=== PATIENT | male | born 1940 | race Caucasian/White ===

== ENCOUNTER 2017-02-16 17:38 | Emergency (ER) | payer OTHER ==
[~2017-02-16] VITALS: Ht 170.2 cm; Wt 104.3 kg
[~2017-02-16 17:38] MED LIST: AMITRIPTYLINE H75 MG PO; AMLODIPINE BESY1 CA5 PO; COLCHICINE0.6 MG PO; ENDOCET 325 MG-1 TA1 PO; LOPRESSOR100 MG PO; METFORMIN HCL500 MG PO; METOPROLOL TART50 MG PO; PREDNISONE 20MG20 MG PO; PREDNISONE10 MG PO; SPIRIVA 18 MCG18 MCG INH; TERAZOSIN HCL5 MG PO
--- NOTE | 2017-02-16 19:16 | RADIOLOGY REPORT ---
EXAMINATION: RIGHT ELBOW RIGHT HAND CLINICAL INFORMATION: Fall. Pain COMPARISON: None. TECHNIQUE: 3 views right elbow. 3 views right hand FINDINGS: Right elbow: There is no definite fracture. No focal lesion. There is a tiny ossific density adjacent to the medial epicondyle. There is some spurring associated with the coronoid process and olecranon. There is at least a moderate amount of joint fluid within the anterior and posterior fat pad sign. Right hand: There is no definite acute displaced fracture. No subluxation. Marked soft tissue swelling over the metacarpal regions. IMPRESSION: Although no discrete fracture is demonstrated around the elbow the presence of joint fluid suggests the possibility of an occult fracture. Clinical correlation necessary. If it would alter patient management follow-up radiography in 7-10 days should be considered No definite fracture or subluxation of the hand. Extensive soft tissue swelling.
--- NOTE | 2017-02-16 19:36 | ED HAND/WRIST INJURY COMPLAINT ---
History of Present Illness General Chief Complaint: General Adult Stated Complaint: PT RIGHT WRIST IS SWOLLEN Source: patient, family, old records Exam Limitations: no limitations Vital Signs & Intake/Output Vital Signs & Intake/Output Vital Signs Date Time Temp Pulse Resp B/P Pulse O2 O2 Flow FiO2 Ox Delivery Rate 02/16 2337 90 18 168/101 95 02/16 2251 98.5 92 20 180/103 96 Room Air 02/167 98.7 116 20 193/118 93 Room Air 02/16 2011 99.6 129 20 174/102 93 Room Air 02/17 1748 99.0 120 16 188/118 95 Room Air ED Intake and Output 02/17 0000 02/16 1200 Intake Total 100 Output Total Balance 100 Intake, IV 100 Patient 230 lb Weight Allergies Coded Allergies: MDX - Color Additive (Color Additive) (RASH FROM "HAIR DYE" 03/02/15) Uncoded Allergies: METAL (Intermediate, 03/02/15) Reconcile Medications Amitriptyline Hydrochloride (Amitriptyline HCl) 75 MG TAB 75 MG PO ANTIDEPRESSANTS (Reported) AMLODIPINE BESYLATE/BENAZEPRIL (Amlodipine-Benazepril 10-40 MG) 10 MG-40 MG CAPSULE 1 TAB PO ANTIHYPERTENSIVES (Reported) 10mg amlodipine hold 40mg benazepril for Acute kidney injury Amoxicillin 875 MG TABLET 1 TAB PO BID cellulitis Colchicine 0.6 MG TAB 1 TAB PO DAILY GOUT Metformin Hydrochloride (Metformin HCl) 500 MG TAB 1 TAB PO DAILY DIABETES ( Reported) Acute kidney injury Metoprolol Tartrate 50 MG TABLET 1 TAB PO BID BETA ELLA (Reported) Metoprolol Tartrate (Lopressor) 100 MG TAB 1 TAB PO BID HEART (Reported) OXYCODONE HCL/ACETAMINOPHEN (Endocet 5-325 Tablet) 1 TAB TAB 1 TAB PO Q6H PRN PAIN Prednisone 20 MG TAB 2 TAB PO DAILY INFLAMMATION Prednisone 10 MG TABLET 1 TAB PO SI GOUT 05/29/14 TAKE 2 TABLET 05/30/14 TAKE 1 TABLET Sulfamethoxazole/Trimethoprim (Bactrim Ds Tablet) 800 MG-160 MG TABLET 1 TAB PO BID cellulitis Terazosin Hydrochloride (Terazosin HCl) 5 MG CAP 15 MG PO DAILY BPH (Reported ) Tiotropium [place] (Spiriva) 18 MCG CAP.W.DEV 1 CAP INH DAILY LUNG HEALTH ( Reported) Triage Note: PT STATES HIS RIGHT WRIST IS SWOLLEN UP TO HIS ELBOW. PT STATES HE THINKS THE STORM DOOR HIS HIS HAND TO HARD. PT REPORTS THIS HAPPEND ON MONDAY AND HE WAITED BY THE SWELLING HAS NOT GONE DOWN AND IS GETTING WORSE. Triage Nurses Notes Reviewed? yes Duration: day(s):, constant Timing: recent history Severity: severe Pain/Injury Location: Right: Wrist, Hand. No Modifying Factors: none HPI: 76-year-old male comes into emergency room for further evaluation of pain and swelling to his right hand/wrist. Patient reports that he had closed it storm door Monday 4 days ago. Patient reports that he's had significant swelling and pain since then. He's had some red streaking going up the arm. Denies any fever chills body aches. Denies any other associated symptoms. (TITA LA) Past History Travel History Traveled to [place] past 21 day No Medical History Any Pertinent Medical History? see below for history Cardiovascular: HTN, HIGH CHOL Respiratory: COPD, LOBECTOMY Cancer(s): LUNG CANCER History of MRSA: No History of VRE: No History of CDIFF: No Surgical History Surgical History: non-contributory Psychosocial History Who do you live with Spouse Services at Home None What is your primary language Ecuadorean Tobacco Use: Quit >30 days ago ETOH Use: occasional use Illicit Drug Use: denies illicit drug use Family History Family History, If Any: BROTHER (heart attack at age of 63). MOTHER (diabetes). Relation not specified for: FH: diabetes mellitus FH: heart attack Hx Contributory? No (TITA LA) Review of Systems Review of Systems Constitutional: Reports: no symptoms. EENTM: Reports: no symptoms. Respiratory: Reports: no symptoms. Cardiovascular: Reports: no symptoms. GI: Reports: no symptoms. Genitourinary: Reports: no symptoms. Musculoskeletal: Reports: see HPI. Skin: Reports: see HPI. Neurological/Psychological: Reports: no symptoms. Hematologic/Endocrine: Reports: no symptoms. Immunologic/Allergic: Reports: no symptoms. All Other Systems: Reviewed and Negative (TITA LA) Physical Exam Physical Exam General Appearance: well developed/nourished, mild distress Head: atraumatic Eyes: Bilateral: normal appearance. Ears, Nose, Throat: normal ENT inspection, hearing grossly normal Neck: normal inspection Cardiovascular/Respiratory: no respiratory distress, tachycardia Back: normal inspection Hand Left: normal inspection Hand Right: swelling, redness, warmth, radial pulse intact, limited range of motion, red streaking going up arm, Neurologic/Tendon: normal motor functions, normal tendon functions, no evidence tendon injury, no pulse deficit Skin: intact, normal color, warm/dry Lymphatic: no anterior cervical claudio (TITA LA) Progress Differential Diagnosis: abscess, cellulitis, contusion, compartment syndrome, septic arthritis, tenosynovitis Plan of Care: Orders Procedure Date/time Status Durable Medical Equipment 02/16 2311 Active BLOOD CULTURE 02/16 1941 Active LACTIC ACID 02/16 1941 Complete WESTERGREN SED RATE 02/16 1941 Complete C-REACTIVE PROTEIN 02/16 1941 Complete CBC WITHOUT DIFFERENTIAL 02/16 1941 Complete BASIC METABOLIC PANEL 02/16 1941 Complete Laboratory Tests 02/16/172240: Lactic Acid Cancelled 02/16/171957: Anion Gap 11, Estimated GFR > 60, BUN/Creatinine Ratio 16.0, Glucose 133 H, Lactic Acid 1.3, Calcium 9.9, C-Reactive Prot, Quant 4.8 H, CBC w Diff NO MAN DIFF REQ, RBC 4.66 L, MCV 92.8, MCH 30.9, RDW 12.9, MPV 8.0, Gran % 77.9 H, Lymphocytes % 11.8 L, Monocytes % 9.2, Eosinophils % 0.9, Basophils % 0.2, Absolute Granulocytes 8.8 H, Absolute Lymphocytes 1.3, Absolute Monocytes 1.0 H, Absolute Eosinophils 0.1, Absolute Basophils 0, PUBS MCHC 33.3, ESR Westergren 62 H Microbiology 02/16 2010 BLOOD: Blood Culture - RECD 02/16 1845 BLOOD: Blood Culture - RECD Diagnostic Imaging: Viewed by Me: Radiology Read. Discussed w/RAD: Radiology Read. Radiology Impression: SERVICE DATE: 02/16/17 EXAM TYPE: RAD - XRY-ELBOW 3 OR MORE VIEWS, R; XRY-HAND, RIGHT EXAMINATION: RIGHT ELBOW RIGHT HAND CLINICAL INFORMATION: Fall. Pain COMPARISON: None. TECHNIQUE: 3 views right elbow. 3 views right hand FINDINGS: Right elbow: There is no definite fracture. No focal lesion. There is a tiny ossific density adjacent to the medial epicondyle. There is some spurring associated with the coronoid process and olecranon. There is at least a moderate amount of joint fluid within the anterior and posterior fat pad sign. Right hand: There is no definite acute displaced fracture. No subluxation. Marked soft tissue swelling over the metacarpal regions. IMPRESSION: Although no discrete fracture is demonstrated around the elbow the presence of joint fluid suggests the possibility of an occult fracture. Clinical correlation necessary. If it would alter patient management follow-up radiography in 7-10 days should be considered No definite fracture or subluxation of the hand. Extensive soft tissue swelling. DICTATED BY: CHAYITO AGUIRRE MD DATE/TIME DICTATED:02/16/171907 ADVERTISING COPYWRITER:LUISA DATE/TIME TRANSCRIBED:02/16/171907 ([place],TITA) Departure Departure Disposition: HOME OR SELF CARE Condition: Stable Clinical Impression Primary Impression: Cellulitis of right hand Referrals: Denisse NAQVI MD (PCP/Family) Additional Instructions: Take Bactrim and amoxicillin as prescribed. Return in 3 days for a wound check. If you have any spreading of redness, fever, increased pain, he needs to return to the emergency room immediately for admission for IV antibiotics. Have your blood pressure rechecked. Make sure you're taking her blood pressure medication. Please go over all results of today's visit with your primary care doctor. Contact your primary care doctor to let them know you were here in the emergency room. There may be nonspecific findings which may not be related to your visit today here in the emergency room but may require further evaluation and chronic monitoring by your primary care doctor. If you had a laceration today the chance of foreign body always remains. You should follow-up with your primary care doctor for recheck in 3-5 days for a wound check. If you had an x-ray done there is a chance that a fracture could have been missed on initial read and you should follow-up with your primary care doctor for repeat x-rays if symptoms persist. If your blood pressure was elevated here in the emergency room please have rechecked by her primary care doctor within the next 48 hours by your primary care doctor. If you were prescribed a narcotic here in the emergency room or any type of controlled substances you're not allowed to drive while taking this medication or operate any type of heavy machinery. Narcotics can make you feel lightheaded dizziness nausea and can cause constipation. You may need to spanish moss picker a stool softener. Thank you for choosing [facility] emergency room. Please return to the emergency room immediately if you have any other concerns worsening of symptoms. Departure Forms: Customer Survey General Discharge Information Prescriptions: Current Visit Scripts Amoxicillin 1 TAB PO BID #20 TAB Sulfamethoxazole/Trimethoprim (Bactrim Ds Tablet) 1 TAB PO BID #20 TAB Comments 02/16/2017 11:16:20 PM Patient did not take his Lopressor this morning or tonight. Patient was given dose of Lopressor here. This explains why the patient's blood pressure was elevated and his heart rate was slightly high. Patient does not want to be admitted for hand cellulitis at this time. Patient be started on oral antibiotics with close follow-up to return here in the emergency room in 3 days to have a wound check. Patient understands and agrees with plan of care. Patient will return if any other concerns. Patient was told that if he has any worsening of symptoms he needs to return to the emergency room immediately. Patient understands and agrees with plan of care. (TITA LA) PA/INVENTORY CONTROL SPECIALIST Co-Sign Statement Statement: ED Attending supervision documentation- x I saw and evaluated the patient. I have also reviewed all the pertinent lab results and diagnostic results. I agree with the findings and the plan of care as documented in the PA's/INVENTORY CONTROL SPECIALIST's documentation. [] I have reviewed the ED Record and agree with the PA's/INVENTORY CONTROL SPECIALIST's documentation. [] Additions or exceptions (if any) to the PAs/INVENTORY CONTROL SPECIALIST's note and plan are summarized below: [] (SARAH BOWDEN,SANDY)
[2017-02-16 20:10] LABS: ABSOLUTE BASOPHIL COUNT 0 /CUMM (0.0-0.2); ABSOLUTE EOSINOPHIL COUNT 0.1 /CUMM (0.0-0.7); ABSOLUTE GRANULOCYTE CT 8.8 /CUMM (1.4-6.5); ABSOLUTE LYMPH COUNT 1.3 /CUMM (1.2-3.4); BASOPHIL % 0.2 % (0.0-2.0); EOSINOPHIL % 0.9 % (0-5); GRANULOCYTE % 77.9 % (42.2-75.2); HEMATOCRIT 43.2 % (42-52); MEAN CORPUSCULAR HGB 30.9 PG (27.0-31.0); MEAN CORPUSCULAR HGB CONC 33.3 G/DL (33.0-37.0); MEAN CORPUSCULAR VOLUME 92.8 FL (80.0-94.0); PLATELET COUNT 310 /CUMM (130-400); RBC DISTRIBUTION WIDTH 12.9 % (11.5-14.5); RED BLOOD CELL CT 4.66 /CUMM (4.70-6.10); WHITE BLOOD CELL COUNT 11.3 /CUMM (4.8-10.8)
[2017-02-16] MEDS ORDERED: AMOXICILLIN875 M1 PO (23:10)
[2017-02-16] MEDS ORDERED: BACTRIM DS TAB1 EACH PO (23:10)
[2017-02-16 23:37] VITALS: BP 168/101
== END 2017-02-16 23:39 ==
LOC: ERH 17:38
PROVIDERS: Physician Assistant Medical
DX: L03.113 Cellulitis of right upper limb (principal)
CPT/HCPCS: 73080-RT; 73130-RT; 87040; 96374; J7040

== ENCOUNTER 2017-02-19 11:56 | Emergency (ER) | payer OTHER ==
[~2017-02-19] VITALS: Ht 170.2 cm; Wt 104.3 kg
[~2017-02-19 11:56] MED LIST changes: +AMOXICILLIN875 M1 PO; +BACTRIM DS TAB1 EACH PO
[2017-02-19 12:22] VITALS: BP 172/90
--- NOTE | 2017-02-19 12:59 | ED ANIMAL BITE/WOUND CHECK ---
History of Present Illness General Chief Complaint: Suture Removal/Wound Recheck Stated Complaint: WOUND RECHECK Source: patient, old records Exam Limitations: no limitations Vital Signs & Intake/Output Vital Signs & Intake/Output Vital Signs Date Time Temp Pulse Resp B/P Pulse O2 O2 Flow FiO2 Ox Delivery Rate 02/19 1222 96.3 76 18 172/90 99 Room Air Allergies Coded Allergies: MDX - Color Additive (Color Additive) (RASH FROM "HAIR DYE" 03/02/15) Uncoded Allergies: METAL (Intermediate, 03/02/15) Reconcile Medications Amitriptyline Hydrochloride (Amitriptyline HCl) 75 MG TAB 75 MG PO ANTIDEPRESSANTS (Reported) AMLODIPINE BESYLATE/BENAZEPRIL (Amlodipine-Benazepril 10-40 MG) 10 MG-40 MG CAPSULE 1 TAB PO ANTIHYPERTENSIVES (Reported) 10mg amlodipine hold 40mg benazepril for Acute kidney injury Amoxicillin 875 MG TABLET 1 TAB PO BID cellulitis Colchicine 0.6 MG TAB 1 TAB PO DAILY GOUT Metformin Hydrochloride (Metformin HCl) 500 MG TAB 1 TAB PO DAILY DIABETES ( Reported) Acute kidney injury Metoprolol Tartrate 50 MG TABLET 1 TAB PO BID BETA ELLA (Reported) Metoprolol Tartrate (Lopressor) 100 MG TAB 1 TAB PO BID HEART (Reported) OXYCODONE HCL/ACETAMINOPHEN (Endocet 5-325 Tablet) 1 TAB TAB 1 TAB PO Q6H PRN PAIN Prednisone 20 MG TAB 2 TAB PO DAILY INFLAMMATION Prednisone 10 MG TABLET 1 TAB PO SI GOUT 05/29/14 TAKE 2 TABLET 05/30/14 TAKE 1 TABLET Sulfamethoxazole/Trimethoprim (Bactrim Ds Tablet) 800 MG-160 MG TABLET 1 TAB PO BID cellulitis Terazosin Hydrochloride (Terazosin HCl) 5 MG CAP 15 MG PO DAILY BPH (Reported ) Tiotropium [place] (Spiriva) 18 MCG CAP.W.DEV 1 CAP INH DAILY LUNG HEALTH ( Reported) Triage Note: PT TO ED FOR CELLULITIS TO HIS HAND RECHECK - REPORTING HE WAS SEEN HERE MONDAY FOR SAME. PT STATING HAND IS GREATLY IMPROVED, DENIES FEVER, WEAKNESS, FATIGUE, N/V. Triage Nurses Notes Reviewed? yes HPI: 76-year-old male who is here for recheck of cellulitis of the right hand. He was seen here 3 days ago for same, placed on amoxicillin and Bactrim, and through this is previous records. He states that his hand is feeling significant the improved, his redness has resolved, he has no fever no flulike illness. He is wearing a wrist brace and he still has swelling in his hand and fingers however it is significantly less, the pain is much improved. (JAQUELIN GUERRA) Past History Travel History Traveled to [place] past 21 day No Medical History Any Pertinent Medical History? see below for history Neurological: NONE EENT: NONE Cardiovascular: HTN, HIGH CHOL Respiratory: COPD, LOBECTOMY Gastrointestinal: NONE Hepatic: NONE Renal: NONE Musculoskeletal: NONE Psychiatric: NONE Endocrine: NONE Blood Disorders: NONE Cancer(s): LUNG CANCER History of MRSA: No History of VRE: No History of CDIFF: No Surgical History Surgical History: non-contributory Psychosocial History Who do you live with Spouse Services at Home None What is your primary language Romansh Tobacco Use: Never used ETOH Use: denies use Illicit Drug Use: denies illicit drug use Family History Family History, If Any: BROTHER (heart attack at age of 63). MOTHER (diabetes). Relation not specified for: FH: diabetes mellitus FH: heart attack Hx Contributory? No (JAQUELIN GUERRA) Review of Systems Review of Systems Constitutional: Reports: see HPI. EENTM: Reports: no symptoms. Respiratory: Reports: no symptoms. Cardiovascular: Reports: no symptoms. GI: Reports: no symptoms. Genitourinary: Reports: no symptoms. Musculoskeletal: Reports: see HPI. Skin: Reports: see HPI. Neurological/Psychological: Reports: no symptoms. Hematologic/Endocrine: Reports: no symptoms. Immunologic/Allergic: Reports: no symptoms. All Other Systems: Reviewed and Negative (JAQEULIN GUERRA) Physical Exam Physical Exam General Appearance: well developed/nourished Comments: Well-developed well-nourished no apparent distress. HEENT: Atraumatic, extraocular motion intact Neck: Supple, no lymphadenopathy Back: Nontender Respiratory: No respiratory distress Extremities: No edema, full range of motion Neuro: Alert and oriented x3 Psych: Mood affect normal, normal memory normal judgment. Skin: Warm and dry, no rash on exposed skin Right upper extremity, there is mild to moderate swelling of the hand and fingers. The patient removes his wrist brace, the swelling is noted mostly only to the hand and fingers and the brace was on fairly tight. His range of motion is good, painless. He has no significant erythema or warmth or tenderness throughout the right upper extremity. At the thenar eminence a small superficial wooden splinter is noted. (JAQUELIN GUERRA) Progress Differential Diagnosis: abscess, cellulitis, joint infection, tenosysnovitis Plan of Care: His infection has near completely resolved with antibiotics. He does have a wooden splinter noted in the right palm thenar eminence. It is small and superficial. After verbal consent was obtained, area was cleansed with alcohol and 18-gauge needle was used to remove the splinter in its entirety without difficulty. Patient tolerated well without complications. He should continue his antibiotics and return with any concerns (JAQUELIN GUERRA) Departure Departure Disposition: HOME OR SELF CARE Condition: Stable Clinical Impression Primary Impression: Cellulitis of hand, right Secondary Impressions: Splinter of hand Qualifiers: Encounter type: initial encounter Laterality: right Qualified Code: S60.551A - Superficial foreign body of right hand, initial encounter Referrals: DONYA BOWDEN,Denisse YANEZ (PCP/Family) Additional Instructions: Continue taking the antibiotics. Avoid using the splint too much because it will limit your ability to reduce the swelling in your hand and fingers. Move your hand wrist and fingers frequently to reduce swelling. Watch for worsening signs of infection such as redness, swelling, pain, fever or flulike illness. Return with any concerns Departure Forms: Customer Survey General Discharge Information (JAQUELIN GUERRA) PA/YOUTH SERVICES SPECIALIST Co-Sign Statement Statement: ED Attending supervision documentation- [X] I saw and evaluated the patient. I have also reviewed all the pertinent lab results and diagnostic results. I agree with the findings and the plan of care as documented in the PA's/YOUTH SERVICES SPECIALIST's documentation. [X] I have reviewed the ED Record and agree with the PA's/YOUTH SERVICES SPECIALIST's documentation. [] Additions or exceptions (if any) to the PAs/YOUTH SERVICES SPECIALIST's note and plan are summarized below: [] (FIDELINA BOWDEN,JERE Bautista)
== END 2017-02-19 13:01 ==
LOC: ERH 11:56
DX: S60.551A Superficial foreign body of right hand, initial encounter (principal); L03.113 Cellulitis of right upper limb; W45.8XXA Other foreign body or object entering through skin, initial encounter; Y93.9 Activity, unspecified; Y92.9 Unspecified place or not applicable
CPT/HCPCS: 99282

== ENCOUNTER 2018-08-07 13:46 | Inpatient (IN) | payer OTHER ==
[~2018-08-07] VITALS: Ht 170.2 cm; Wt 103.9 kg
[~2018-08-07 13:46] MED LIST changes: +AMITRIPTYLINE H75 M2 PO; -AMITRIPTYLINE H75 MG PO; +METFORMIN HCL500 M3 PO; -METFORMIN HCL500 MG PO; +TERAZOSIN HCL10 M1 PO; -TERAZOSIN HCL5 MG PO
--- NOTE | 2018-08-07 14:27 | RADIOLOGY REPORT ---
EXAMINATION: XR PORTABLE CHEST CLINICAL INFORMATION: Weakness. COMPARISON: 01/11/2018 TECHNIQUE: Portable frontal view of the chest was obtained. FINDINGS: Severe pulmonary emphysema. Volume loss of right hemithorax with elevation right diaphragm from prior lower lobectomy. Linear opacity of focal scarring or discoid atelectasis in the inferior lingula. No acute cardiopulmonary findings compared to the prior radiograph. No pulmonary edema, pneumothorax or pleural effusion. Cardiac silhouette is normal in size. Atherosclerotic calcification of the thoracic aorta. Surgical absence of right sixth rib. IMPRESSION: - Pulmonary emphysema - No evidence of acute pneumonia. - The chest has a stable appearance compared to 01/11/2018.
[2018-08-07 14:37] LABS: ABSOLUTE BASOPHIL COUNT 0 /CUMM (0.0-0.2); ABSOLUTE EOSINOPHIL COUNT 0.1 /CUMM (0.0-0.7); ABSOLUTE GRANULOCYTE CT 9.7 /CUMM (1.4-6.5); ABSOLUTE LYMPH COUNT 1.1 /CUMM (1.2-3.4); ABSOLUTE MONOCYTE COUNT 0.9 /CUMM (0.10-0.60); BASOPHIL % 0.3 % (0.0-2.0); EOSINOPHIL % 0.5 % (0-5); GRANULOCYTE % 82.2 % (42.2-75.2); HEMATOCRIT 40.6 % (42-52); MEAN CORPUSCULAR HGB 31.8 PG (27.0-31.0); MEAN CORPUSCULAR HGB CONC 33.5 G/DL (33.0-37.0); MEAN CORPUSCULAR VOLUME 95.1 FL (80.0-94.0); MEAN PLATELET VOLUME 8.5 FL (7.4-10.4); PLATELET COUNT 337 /CUMM (130-400); RBC DISTRIBUTION WIDTH 12.3 % (11.5-14.5); RED BLOOD CELL CT 4.27 /CUMM (4.70-6.10); WHITE BLOOD CELL COUNT 11.8 /CUMM (4.8-10.8)
[2018-08-07] MEDS ORDERED: METOPROLOL TAR100 M1 PO (15:00)
[2018-08-07] MEDS ORDERED: LOTREL 10-40 M1 EACH PO (15:01)
--- NOTE | 2018-08-07 15:10 | ED AMS/SEIZURE/WEAK/DIZZY ---
See Addendum History of Present Illness General Chief Complaint: General Adult Stated Complaint: BIBA, GENERALIZED WEAKNESS Source: patient, family, old records Exam Limitations: no limitations Vital Signs & Intake/Output Vital Signs & Intake/Output Vital Signs Date Time Temp Pulse Resp B/P B/P Pulse O2 O2 Flow FiO2 Mean Ox Delivery Rate 08/07 1542 96 Nasal 2.0L Cannula 08/07 1351 97.8 78 20 101/45 94 Room Air Room Air Allergies Uncoded Allergies: HAIR DYE (RASH FROM HAIR DYE 08/07/18) METAL (Intermediate, 03/02/15) Reconcile Medications Amitriptyline HCl 75 MG TABLET 1 TAB PO QPM DEPRESSION (Reported) Amlodipine Besylate/Benazepril (Lotrel 10-40 MG Capsule) 10 MG-40 MG CAPSULE 1 CAP PO DAILY HEART (Reported) Metformin HCl 500 MG TABLET 1 TAB PO BID DIABETES (Reported) Metoprolol Tartrate 100 MG TABLET 1 TAB PO BID HEART (Reported) Terazosin HCl 10 MG CAPSULE 1 CAP PO DAILY BPH (Reported) Triage Note: PT BIBA FROM HOME FOR INCREASED WEAKNESS OVER THAT LAST FEW WEEKS. REPORTS JUST GENERALLY NOT FEELING WELL. DENIES SOB, CP. PT'S O2 SAT DROPPED TO 89% ON RA. PT APPEARS SLIGHTLY PALE ON ARRIVAL. Triage Nurses Notes Reviewed? yes Onset: Abrupt Duration: day(s): (2-3), constant, continues in ED Timing: single episode today Injury Environment: home Severity: mild, moderate No Modifying Factors: none Modifying Factors: Worsens With: movement. HPI: 78-year-old male past medical history of lung cancer status post lobectomy, diabetes, COPD on home O2, hypertension, hyperlipidemia presents for evaluation of generalized weakness. Patient reports over the past few days he has felt more weak than usual. He states that he has had a difficult time moving around due to the weakness. His reports he has not been eating or drinking much spent most of his time in bed. He usually is able to walk without much difficulty. Patient reports he also has had worsening gout flares recently. They initially started in both ankles and is now on the right wrist. He denies any trauma to this area. The pain is worse with movement. He denies any fever or spreading redness. Has not taken any medicine for this. He states that he is urinating usually. He has no nausea vomiting diarrhea chest pain hemoptysis lower extremity edema recent surgery or recent trauma. According to his he appears more lethargic than usual but is mentating normally. (Scott Ziegler) Past History Travel History Traveled to [place] past 21 day No Medical History Any Pertinent Medical History? see below for history Neurological: NONE EENT: NONE Cardiovascular: HTN, HIGH CHOL Respiratory: COPD, LOBECTOMY Gastrointestinal: NONE Hepatic: NONE Renal: NONE Musculoskeletal: gout Psychiatric: NONE Endocrine: diabetes Blood Disorders: NONE Cancer(s): LUNG CANCER History of MRSA: No History of VRE: No History of CDIFF: No Surgical History Surgical History: non-contributory Psychosocial History Who do you live with Spouse Services at Home None What is your primary language Swiss Tobacco Use: Quit >30 days ago Family History Family History, If Any: BROTHER (heart attack at age of 63). MOTHER (diabetes). Relation not specified for: FH: diabetes mellitus FH: heart attack Hx Contributory? No (Scott Ziegler) Review of Systems Review of Systems Constitutional: Reports: malaise, weakness. EENTM: Reports: no symptoms. Respiratory: Reports: no symptoms. Cardiovascular: Reports: no symptoms. GI: Reports: no symptoms. Genitourinary: Reports: no symptoms. Musculoskeletal: Reports: gout, joint pain, joint swelling. Skin: Reports: no symptoms. Neurological/Psychological: Reports: no symptoms. Hematologic/Endocrine: Reports: no symptoms. Immunologic/Allergic: Reports: no symptoms. All Other Systems: Reviewed and Negative (Scott Ziegler) Physical Exam Physical Exam General Appearance: well developed/nourished, no apparent distress, alert, awake Head: atraumatic, normal appearance Eyes: Bilateral: normal appearance, PERRL, EOMI. Ears, Nose, Throat: hearing grossly normal Neck: normal inspection, supple, full range of motion Respiratory: normal breath sounds, chest non-tender, no respiratory distress, lungs clear Cardiovascular: regular rate/rhythm, normal peripheral pulses Peripheral Pulses: 2+ radial (R), 2+ radial (L) Gastrointestinal: soft, non-tender Back: normal inspection, normal range of motion, no vertebral tenderness Extremities: normal range of motion Neurologic/Psych: no motor/sensory deficits, awake, alert, oriented x 3 Skin: intact, normal color, warm/dry Core Measures ACS in differential dx? No CVA/TIA Diagnosis No Sepsis Present: No Sepsis Focused Exam Completed? No (Dutch VALLE,Scott) Progress Differential Diagnosis: arrythmia, alcohol intoxication, anemia, benign positional vertigo, CVA/stroke, dehydration, electrolyte imbalance, GI bleed, hypoglycemia, hypoxia, pneumonia, sepsis, UTI/pyelo Plan of Care: Orders Procedure Date/time Status Consistent Carbohydrate 1 08/07 D Active LACTIC ACID 08/07 1651 Active Misc Message 08/07 1558 Active ED Holding Orders 08/07 1558 Active Admit to inpatient 08/07 1558 Active Vital Signs 08/07 1558 Active Code Status 08/07 1558 Active Patient Data 08/07 1552 Active US-RENAL/KIDNEY 08/07 1522 Active Add-on Test (ER Only) 08/07 1442 Active URIC ACID 08/07 1424 Complete URINALYSIS 08/07 1351 Active TROPONIN LEVEL 08/07 1351 Complete LACTIC ACID 08/07 1351 Complete COMPREHENSIVE METABOLIC PANEL 08/07 1351 Complete CBC WITHOUT DIFFERENTIAL 08/07 1351 Complete EKG 08/07 1351 Active Current Medications Sig/Jhon Start time Last Medication Dose Stop Time Status Admin Sodium Chloride 1,000 ML BOLUS ONE 08/07 1530 AC 08/07 (Normal Saline 0.9%) 08/07 1629 1546 Laboratory Tests 08/07/18 1424: Anion Gap 12, Estimated GFR 18 L, BUN/Creatinine Ratio 13.2, Glucose 125 H, Lactic Acid 1.3, Uric Acid 9.8 H, Calcium 9.6, Total Bilirubin 0.5, AST 25, ALT 20 L, Alkaline Phosphatase 58, Troponin I < 0.01, Total Protein 6.3, Albumin 3.7, Globulin 2.6, Albumin/Globulin Ratio 1.4, CBC w Diff NO MAN DIFF REQ, RBC 4.27 L, MCV 95.1 H, MCH 31.8 H, MCHC 33.5, RDW 12.3, MPV 8.5, Gran % 82.2 H, Lymphocytes % 9.4 L, Monocytes % 7.6, Eosinophils % 0.5, Basophils % 0.3, Absolute Granulocytes 9.7 H, Absolute Lymphocytes 1.1 L, Absolute Monocytes 0.9 H, Absolute Eosinophils 0.1, Absolute Basophils 0 Patient is here for evaluation of generalized weakness and gout flare. This started 2 or 3 days ago getting worse. He does have pain and swelling and some faint erythema to the right wrist over the dorsum. No trauma this area no lymphatic streaking full range of motion is intact neurovascular supply intact. He is afebrile. Labs were ordered EKG ordered chest x-ray. BLOOD WORK SHOWS aN elevated BUN and creatinine. Usually patient runs in the low ones he is 3.4 today. He has a normal potassium. Renal ultrasound was ordered patient has not yet given a urine. IV fluids were ordered. Chest x-ray is unremarkable x-ray of the right wrist shows soft tissue swelling without fracture. Patient will require admission due to acute kidney injury. He was given 40 mg of prednisone for possible gout flare. Considered the possibility of cellulitis however he'll be treated for gout at this time. Patient will require admission for IV fluids serial labs steroids case management physical therapy. Case discussed with Dr. Silverman he agrees Diagnostic Imaging: Viewed by Me: Radiology Read. Discussed w/RAD: Radiology Read. Radiology Impression: PATIENT: LAVELLE NORIEGA PRESENT AGE: 78 PATIENT ACCOUNT NO: [id number] : 40 LOCATION: [facility] ORDERING PHYSICIAN: Scott VALLE SERVICE DATE: 08/07/18 EXAM TYPE: RAD - XRY-WRIST COMPLETE-RIGHT EXAMINATION: XR WRIST, RIGHT CLINICAL INFORMATION: Right wrist pain, swelling and redness. COMPARISON: 12/26/2017 TECHNIQUE: Four views of the right wrist. FINDINGS: Soft tissue tissues appear mildly swollen in the hand and wrist. Mild atherosclerotic calcification of the radial artery. The distal radius, ulna and radioulnar joint remain intact. Small ossicle projects distal to the ulnar styloid process. The carpal joint spaces are well-preserved. Mild osteophyte formation at the first carpometacarpal joint. No osseous erosion, periostitis, fracture or malalignment. No soft tissue tophaceous deposits are identified. IMPRESSION: - Nonspecific soft tissue swelling of the wrist and hand. - No radiographic evidence of gouty arthritis. 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 - No acute abnormalities compared to the prior radiographs from 12/26/2017. DICTATED BY: Jordin Syed MD DATE/TIME DICTATED: 08/07/181509 PIPELINE SUPERINTENDENT DIVISION:LUISA DATE/TIME TRANSCRIBED:08/07/181509 CONFIDENTIAL, DO NOT COPY WITHOUT APPROPRIATE AUTHORIZATION. <Electronically signed in Other Vendor System> SIGNED BY: Jordin Syed MD 08/07/18 1516 CXR Impression: PATIENT: LAVELLE NORIEGA PRESENT AGE: 78 PATIENT ACCOUNT NO: [id number] : 40 LOCATION: [facility] ORDERING PHYSICIAN: Scott VALLE SERVICE DATE: 08/07/18-1351 EXAM TYPE: RAD - XRY-PORTABLE CHEST XRAY EXAMINATION: XR PORTABLE CHEST CLINICAL INFORMATION: Weakness. COMPARISON: 01/11/2018 TECHNIQUE: Portable frontal view of the chest was obtained. FINDINGS: Severe pulmonary emphysema. Volume loss of right hemithorax with elevation right diaphragm from prior lower lobectomy. Linear opacity of focal scarring or discoid atelectasis in the inferior lingula. No acute cardiopulmonary findings compared to the prior radiograph. No pulmonary edema, pneumothorax or pleural effusion. Cardiac silhouette is normal in size. Atherosclerotic calcification of the thoracic aorta. Surgical absence of right sixth rib. IMPRESSION: - Pulmonary emphysema - No evidence of acute pneumonia. - The chest has a stable appearance compared to 01/11/2018. DICTATED BY: Jordin Syed MD DATE/TIME DICTATED:08/07/181419 PIPELINE SUPERINTENDENT DIVISION:LUISA DATE/ TIME TRANSCRIBED:08/07/181419 CONFIDENTIAL, DO NOT COPY WITHOUT APPROPRIATE AUTHORIZATION. 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, right wrist Referrals: Alberto BOWDEN,Dylan Couch (PCP/Family) Departure Forms: Customer Survey General Discharge Information Admission Note Spoke With: Nila Ponce MD Documentation of Exam: Documentation of any treatments & extenuating circumstances including Concerns Regarding Discharge (functional status, medication knowledge or non-compliance, living conditions, etc.) that warrant an admission rather than observation: [IV fluids, serial labs, nephrology consult, medication adjustment, physical therapy consult, case management, IV steroids] (Scott Ziegler) PA/COURT MESSENGER Co-Sign Statement Statement: ED Attending supervision documentation- [X] I saw and evaluated the patient. I have also reviewed all the pertinent lab results and diagnostic results. I agree with the findings and the plan of care as documented in the PA's/COURT MESSENGER's documentation. Patient presents for evaluation generalized weakness. Physical examination reveals a nonfocal neurologic evaluation. [] I have reviewed the ED Record and agree with the PA's/COURT MESSENGER's documentation. [] Additions or exceptions (if any) to the PAs/COURT MESSENGER's note and plan are summarized below: [] (Andra BOWDEN,Andrea Arthur)
--- NOTE | 2018-08-07 15:16 | RADIOLOGY REPORT ---
EXAMINATION: XR WRIST, RIGHT CLINICAL INFORMATION: Right wrist pain, swelling and redness. COMPARISON: 12/26/2017 TECHNIQUE: Four views of the right wrist. FINDINGS: Soft tissue tissues appear mildly swollen in the hand and wrist. Mild atherosclerotic calcification of the radial artery. The distal radius, ulna and radioulnar joint remain intact. Small ossicle projects distal to the ulnar styloid process. The carpal joint spaces are well-preserved. Mild osteophyte formation at the first carpometacarpal joint. No osseous erosion, periostitis, fracture or malalignment. No soft tissue tophaceous deposits are identified. IMPRESSION: - Nonspecific soft tissue swelling of the wrist and hand. - No radiographic evidence of gouty arthritis. 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 - No acute abnormalities compared to the prior radiographs from 12/26/2017.
--- NOTE | 2018-08-07 16:19 | ULTRASOUND REPORT ---
EXAMINATION: US RETROPERITONEAL COMPLETE (RENAL) CLINICAL INFORMATION: AK I. COMPARISON: CT abdomen and pelvis 01/31/2013 TECHNIQUE: Real-time imaging of the kidneys and bladder. FINDINGS: RIGHT KIDNEY: 11.9 x 5.2 x 5.3 cm (SAG x AP x TRV). The kidney is normal in size, contour, and echogenicity. Renal cortical thickness is normal. No calculi or focal parenchymal lesions. No hydronephrosis. LEFT KIDNEY: 11.8 x 5.2 x 4.8 cm (SAG x AP x TRV). The kidney is normal in size, contour, and echogenicity. Renal cortical thickness is normal. No calculi or focal parenchymal lesions. No hydronephrosis. BLADDER: The bladder is decompressed. IMPRESSION: Unremarkable renal ultrasound. No hydronephrosis.
--- NOTE | 2018-08-07 16:44 | Admission Certification ---
Admission Certification Certification Statement - As attending physician, I certify that at the time of - admission, based on clinical presentation, severity of - symptoms, need for further diagnostic testing and - therapeutic interventions, and risk of adverse outcomes - without in-hospital treatment, in my clinical assessment, - this patient requires an acute hospital stay for a minimum - of two nights or longer. I have also considered psychsocial - factors such as support system, advanced age, financial - issues, cognitive issues, and failed out-patient treatments, - past re-admission history, safety of patient, and lack of - compliance as applicable. Specific rationale supporting this admission is: maria esther and acute gout attack
--- NOTE | 2018-08-07 16:54 | History & Physical ---
Enrike Garcia 08/07/18 1653: General Information and HPI MD Statement: I have seen and personally examined LAVELLE NORIEGA and documented this H&P. The patient is a 78 year old M who presented with a patient stated chief complaint of []. Source of Information: patient, family History of Present Illness: 78-year-old male patient medical history of Gout flares in wrist and ankles, lung cancer status post lobectomy, depression, diabetes, COPD on home O2, hypertension, hyperlipidemia presented to the ER for evaluation of generalized weaknessm gout flare in her right wrist. The patient had generalized weakness, flare of gout that started in the right foot and then migrated to the left foot and then in the right wrist. Patient was feverish and had chills on past and started feeling exhausted. The patient has a past history of gout for the past couple of years but has not been on any continuous treatment except for allopurinol that is started by his PCP after the gout flares. He drinks 1 beer every day but does not consume excessive red meat diet. patient takes X extra strength Tylenol and does not take NSAIDS. During 1 of the flares patient was told that his kidneys were affected however the exact diagnosis is not available at the time of history taking. Patient has been noticing decreased appetite and has not been eating or drinking enough for the past couple of days. Today he presented to the hospital with increased exhaustion related to hot weather, weakness, gout flare in the wrist. Allergies/Medications Allergies: Uncoded Allergies: HAIR DYE (RASH FROM HAIR DYE 08/07/18) METAL (Intermediate, 03/02/15) Home Med list Amitriptyline HCl 75 MG TABLET 1 TAB PO QPM DEPRESSION (Reported) Amlodipine Besylate/Benazepril (Lotrel 10-40 MG Capsule) 10 MG-40 MG CAPSULE 1 CAP PO DAILY HEART (Reported) Metformin HCl 500 MG TABLET 1 TAB PO BID DIABETES (Reported) Metoprolol Tartrate 100 MG TABLET 1 TAB PO BID HEART (Reported) Terazosin HCl 10 MG CAPSULE 1 CAP PO DAILY BPH (Reported) Past History Travel History Traveled to [place] past 21 day No Medical History Neurological: NONE EENT: NONE Cardiovascular: HTN, HIGH CHOL Respiratory: COPD, LOBECTOMY, lung cancer Gastrointestinal: NONE Hepatic: NONE Renal: NONE Musculoskeletal: gout Psychiatric: NONE Endocrine: diabetes Blood Disorders: NONE Cancer(s): LUNG CANCER History of MRSA: No History of VRE: No History of CDIFF: No Surgical History Surgical History: non-contributory Past Family/Social History Family History Relations & Conditions if any BROTHER (heart attack at age of 63). MOTHER (diabetes). Relation not specified for: FH: diabetes mellitus FH: heart attack Psychosocial History Services at Home: None Review of Systems Review of Systems Constitutional: Reports: see HPI. Cardiovascular: Denies: chest pain, edema, orthopena, palpitations, peripheral edema, syncope. Respiratory: Denies: cough, hemoptysis, orthopnea, short of breath, sputum production, wheezing. GI: Denies: abdominal pain, bloating, constipation, diarrhea, distention, changes in stool, vomiting, steatorrhea. Genitourinary: Denies: discharge, dysuria, frequency, hematuria, hesitation. Musculoskeletal: Reports: gout, joint pain, joint swelling. Denies: back pain, muscle pain, muscle stiffness, neck pain. Skin: Reports: erythema. Exam & Diagnostic Data Last 24 Hrs of Vital Signs/I&O Vital Signs Date Time Temp Pulse Resp B/P B/P Pulse O2 O2 Flow FiO2 Mean Ox Delivery Rate 08/07 1616 98.0 73 20 116/58 94 Nasal 2.0L Cannula 08/07 1542 96 Nasal 2.0L Cannula 08/07 1351 97.8 78 20 101/45 94 Room Air Room Air Intake & Output 08/07 1600 08/07 0800 08/07 0000 Intake Total 0 Output Total Balance 0 Intake, Oral 0 Patient 230 lb Weight Weight Reported by Patient Measurement Method Physical Exam General Appearance Alert, Oriented X3, Cooperative, No Acute Distress Cardiovascular Regular Rate, No Murmurs Lungs Clear to Auscultation, Normal Air Movement Abdomen Normal Bowel Sounds, Soft, No Tenderness, No Hepatospenomegaly, No Masses Neurological Normal Gait, Normal Speech, Strength at 5/5 X4 Ext, Normal Tone, Sensation Intact Extremities swelling of the right wrist with erythema ,restricted range of movement, severe pain and tenderness+ Last 24 Hrs of Labs/Dariusz: Laboratory Tests 08/07/18 1424: Anion Gap 12, Estimated GFR 18 L, BUN/Creatinine Ratio 13.2, Glucose 125 H, Lactic Acid 1.3, Uric Acid 9.8 H, Calcium 9.6, Total Bilirubin 0.5, AST 25, ALT 20 L, Alkaline Phosphatase 58, Troponin I < 0.01, Total Protein 6.3, Albumin 3.7, Globulin 2.6, Albumin/Globulin Ratio 1.4, CBC w Diff NO MAN DIFF REQ, RBC 4.27 L, MCV 95.1 H, MCH 31.8 H, MCHC 33.5, RDW 12.3, MPV 8.5, Gran % 82.2 H, Lymphocytes % 9.4 L, Monocytes % 7.6, Eosinophils % 0.5, Basophils % 0.3, Absolute Granulocytes 9.7 H, Absolute Lymphocytes 1.1 L, Absolute Monocytes 0.9 H, Absolute Eosinophils 0.1, Absolute Basophils 0 Assessment/Plan Assessment: 78-year-old male past medical history of Gout flares in wrist and ankles, lung cancer status post lobectomy, diabetes, COPD on home O2, hypertension, hyperlipidemia presented to the ER for evaluation of generalized weakness. The patient has not been eating or drinking much, hasnt been using any NSAIDs, anbd uses only extra strengtyh tyelenol for pain, Vitals- temp 97.8, puylse 78, rr- 20, bp-100/50, pulse ox- 94, RA Labs- Cr- 3.4, baseline is 1.3 K+, NA- NAD Anion Gap 12, Estimated GFR 18 L WBC- 11.8 Renal usg -Unremarkable renal ultrasound. No hydronephrosis. XR WRIST, RIGHT- - Nonspecific soft tissue swelling of the wrist and hand. - No radiographic evidence of gouty arthritis. 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 - No acute abnormalities compared to the prior radiographs from 12/26/2017. CXR- - Pulmonary emphysema - No evidence of acute pneumonia. - The chest has a stable appearance compared to 01/11/2018. a/p 1. Gout- given 40 mg of prednisone uric acid level 9.8 place the patient on allopurinol after the flare resolves do not give NSAIDS due to poor renal functions 2. JUANY- Patient started on IV fluids Trend BEP /cr -Code status- FULL code DVT prohylaxis As Ranked By This Provider Problem List: 1. Acute kidney injury 2. Gout attack Core Measures/Misc (08/13) Acute Coronary Syndrome ACS Diagnosis: No Congestive Heart Failure Congestive Heart Failure Diagnosis No Cerebrovascular Accident CVA/TIA Diagnosis: No VTE (View Protocol) VTE Risk Factors Other No Mechanical VTE Prophylaxis d/t Other No VTE Pharm Prophylaxis d/t Other Sepsis (View protocol) Sepsis Present: No If YES complete Sepsis Event Note If YES complete Sepsis Event Note Nila Ponce 08/07/18 1720: Core Measures/Misc (08/13) Sepsis (View protocol) If YES complete Sepsis Event Note If YES complete Sepsis Event Note Attending MD Review Statement Attending Statement Attending MD Statement: examined this patient, discuss w/resident/PA/SAFETY AND HEALTH MANAGER, agreed w/resident/PA/SAFETY AND HEALTH MANAGER, reviewed EMR data (avail) Attending Assessment/Plan: 78 yr old male with pmh of gout ( Not on meds), lung cancer status [place] [address] Landaverde, diabetes, COPD on home O2( as needed - f/u with Dr Rodriguez), hypertension, hyperlipidemia presents for evaluation of generalized weakness. Patient reports over the past few days he has felt more weak than usual and according to the has not been eating or drinking and has been sleeping more. Pt also complained of dry mouth and rt wrist pain and swelling. He has had gout in the past in big toes and was on allopurinol in past but not on it currently. He also complains of some ankle swelling and pain . pt in ER was found to have Juany and gout flare and was given iv fluids and prednisone. JUANY- pt has cr of 3.4 . WIll hydrate with NS @ 100ml/hr and encourage po hydration and will f/u renal panel closely. will see how he does. Acute gout attack with rt wrist redness and swelling- will start him on prednisone 40mg daily for now and see how he does. was given one dose in ER today. his uric acid level was 9.8. pt should be on allopurinol intermodal customer service once his acute gout attack resolves and JUAYN resolves. pt not a candidate for NSAIDS due to his JUANY. d/w pt and pts at bedside the care plan. Sandra Louise MD 08/08/18 0922: Core Measures/Misc (08/13) Sepsis (View protocol) If YES complete Sepsis Event Note If YES complete Sepsis Event Note Resident Review Statement Resident Statement: examined this patient, discussed with architect internship, agreed with architect internship Other Findings: Patient is a 78 y/o male with PMH of gout, lung cancer s/p lobectomy, DM, COPD on home oxygen (as needed), HTN, HLD, presenting with chief complaint of right wrist and ankle pain. Patient's was present at bedside during interview. Patient reports that he has been having pain in his ankle and wrist over the past week. States that it started 5 days prior to admission in his right foot. States the pain went away in the right foot and later appeared in the left foot. States 2 days prior to admission he started experiencing right wrist pain and swelling. Patient's reports that patient has been lethargic over the past few days, has had a decreased appeitite and reports increasing difficulty moving around. Patient denies any trauma or falls. Patient reports a history of gout. States he was diagnosed a few years ago and has had approximately 5 gouty attacks. Patient statees that he has been on allopurinol in the past however was not told to continue it. Patient reports he does eat red meat occasionally and reports drinking 1 beer or scotch/wine per day. In the ED patient was given a 1L NS bolus and prednisone 40mg PO x 1. On exam: Vitals: Tmax: 98.0, HR: 73-78, RR: 20, BP: 116/58, Saturating at 94-98% GEN: No acute distress, resting comfortably in bed HEENT: dry mucosal membranes, EOMI Lungs: CTAB, no wheezing, rhonchi or rales CVS: RRR, S1 and S2 Abd: soft, nt, nd, + bs Ext: Right wrist- warmth, erythema and tenderness to palpation and pain with passive and active movement, decreased rn lactation consultant strength attributed to pain, left and right ankle without pain or swelling Labs: pertnent for BUN/Cr: 45 and 3.4 (baseline 1.2), uric acid: 9.8 Imaging: Cxr: pulmonary emphysema with no acute process Ankle and Wrist Xray: nonspecific soft tissue swelling. No evidence of gout. Mild osteoathrosis of the 1st MCP. Problems: 1. Gouty flare 2. JUANY, prerenal in setting of dehydration due to anorexia 3. Generalized wekaness 4. History of lung cancer s/p lobectomy, DM, COPD on home oxygen (as needed), HTN, HLD Plan: Admit to gen med Continue prednisone 40mg daily for gout Will avoid NSAIDs including colchicine at this time due to renal failure - may start if gout pain does not subside with the steroid and once renal failure resolves IV fluid hydration with NS PT consult in AM Continue home medications, hold oral hypoglycemic agents Novolog SS with accucheck TIDAC/qhs Pain control with tylenol DVT PPx: Heparin SQ and ALPS Code: Full code Diet: consistent carb
[2018-08-07 17:38] VITALS: BP 112/80
[2018-08-07 22:13] VITALS: BP 102/60
[2018-08-08 06:37] VITALS: BP 114/60
--- NOTE | 2018-08-08 07:14 | PN- Housestaff ---
Enrike Garcia 08/08/18712: Subjective Follow-up For: gout JUANY Subjective: patient was examined bedside and says he is doing much better today. Reduced swelling in the wrist and decreased pain. Decreased erythema. Patient has improved appetite and feels thirsty however continues to feel tired. Review of Systems Constitutional: Reports: see HPI. Objective Last 24 Hrs of Vital Signs/I&O Vital Signs Date Time Temp Pulse Resp B/P B/P Pulse O2 O2 Flow FiO2 Mean Ox Delivery Rate 08/08 1434 98.9 69 20 110/65 93 Room Air 08/08 0825 76 114/60 08/08 0825 76 114/60 08/08 0824 76 114/60 08/08 0800 92 Nasal 2.0L Cannula 08/08 0637 98.6 76 20 114/60 92 08/08 0000 Nasal 2.0L Cannula 08/07 2349 Room Air Room Air 08/07 2213 97.6 97 20 102/60 92 Nasal Cannula 08/07 1738 98.6 76 20 112/80 96 Nasal 2.0L Cannula Intake & Output 08/08 1600 08/08 0800 08/08 0000 Intake Total 1370 900 100 Output Total 450 Balance 920 900 100 Intake, IV 750 800 Intake, Oral 620 100 100 Number 1 Bowel Movements Output, Urine 450 Patient 229 lb 106 lb 230 lb Weight Weight Reported by Patient Measurement Method Physical Exam General Appearance: Alert, Oriented X3, Cooperative, No Acute Distress Cardiovascular: Regular Rate, No Murmurs Lungs: Clear to Auscultation, Normal Air Movement Abdomen: Normal Bowel Sounds, Soft, No Tenderness, No Hepatospenomegaly, No Masses Extremities: restricted hand movements with swelling in the right wrist. however swellingis decreased coparedto yesterday. and the patient showed a swelling in his left knee , bony hard thats started as a cyst and was drained. Current Medications: Current Medications Sig/Jhon Start time Last Medication Dose Route Stop Time Status Admin Acetaminophen 650 MG Q6P PRN 08/07 2215 AC PO Acetaminophen 1,000 MG Q6P PRN 08/07 2215 AC IV Amitriptyline HCl 75 MG AT BEDTIME 08/07 2215 AC 08/07 PO 2324 Amlodipine Besylate 10 MG DAILY 08/08 900 AC 08/08 PO 08 Doxazosin Mesylate 2 MG DAILY 08/08 900 AC 08/08 PO 0822 Heparin Sodium 5,000 UNIT Q8 08/08 06 08/08 (Porcine) SC 1359 Influenza Virus 0.5 ML ONCE ONE 08/07 1815 DC Vaccine IM 08/07 1816 Insulin Aspart 0 TIDAC 08/08 800 AC 08/08 SC 1728 Lisinopril 40 MG DAILY 08/08 900 DC 08/08 PO 0824 Metoprolol Tartrate 100 MG BID 08/08 900 AC 08/08 PO 0825 Patient Medication 1 ED ONE ONE 08/08 1115 DC 08/08 Teaching ED 08/08 1116 1236 Polyethylene Glycol 17 GM AT BEDTIME PRN 08/07 221 AC PO Prednisone 40 MG DAILY 08/08 900 AC 08/08 PO 0823 Senna/Docusate Sodium 1 TAB AT BEDTIME PRN 08/07 2215 AC PO Sodium Chloride 1,000 ML .Q10H 08/07 221 AC 08/08 IV 0832 Last 24 Hrs of Lab/Dariusz Results Last 24 Hrs of Labs/Mics: Laboratory Tests 08/08/18 0636: Anion Gap 10, Estimated GFR 25 L, BUN/Creatinine Ratio 22.4, CBC w Diff NO MAN DIFF REQ, RBC 3.59 L, MCV 95.0 H, MCH 32.1 H, MCHC 33.8, RDW 12.6, MPV 8.9, Gran % 86.5 H, Lymphocytes % 8.1 L, Monocytes % 5.1, Eosinophils % 0, Basophils % 0.3, Absolute Granulocytes 6.5, Absolute Lymphocytes 0.6 L, Absolute Monocytes 0.4, Absolute Eosinophils 0, Absolute Basophils 0 08/08/18 0620: Urinalysis LIGHT H, Urine Color YEL, Urine Clarity HAZY H, Urine pH 5.5, Ur Specific [place] >= 1.030, Urine Protein NEG, Urine Ketones NEG, Urine Nitrite NEG, Urine Bilirubin [email or web address]@[email or web address], Urine Urobilinogen 0.2, Ur Leukocyte Esterase NEG , Ur Microscopic SEDIMENT EXAMINED, Urine WBC 1-3 H, Ur Epithelial Cells FEW, Urine Bacteria FEW H, Hyaline Casts FEW H, Urine Hemoglobin NEG, Urine Glucose NEG Assessment/Plan Assessment: 78-year-old male past medical history of Gout flares in wrist and ankles, lung cancer status post lobectomy, diabetes, COPD on home O2, hypertension, hyperlipidemia presented to the ER for evaluation of generalized weakness. The patient has not been eating or drinking much, hasnt been using any NSAIDs, anbd uses only extra strengtyh tyelenol for pain, a/p 1. Gout- given 40 mg of prednisone, comtimue the same treatment. uric acid level 9.8 place the patient on allopurinol after the flare resolves do not give NSAIDS due to poor renal functions 2. JUANY- Patient started on IV fluids cr- 2.5 Trending low -Code status- FULL code DVT prohylaxis Problem List: 1. Acute kidney injury 2. Gout Pain Ratin Pain Location: wrist Pain Goal: Remain pain free Pain Plan: tyelenol Tomorrow's Labs & Rationales: Manny Edmonds MD 08/08/182020: Attending MD Review Statement Attending Statement Attending MD Statement: examined this patient, discuss w/resident/PA/CAR TRACER, agreed w/resident/PA/CAR TRACER, reviewed EMR data (avail), discussed with nursing, discussed with case mgmt, amended to note Attending Assessment/Plan: The patient was seen and discussed with house staff. Gouty arthritis in right wrist improving on Prednisone. Cr decreasing with hydration. Will hold Metformin /Lisinopril, continue IV hydration and follow-up Cr in morning. Would avoid NSAIDS, etc. with current acute renal failure (JUANY).
[2018-08-08 07:59] LABS: ABSOLUTE BASOPHIL COUNT 0 /CUMM (0.0-0.2); ABSOLUTE EOSINOPHIL COUNT 0 /CUMM (0.0-0.7); ABSOLUTE GRANULOCYTE CT 6.5 /CUMM (1.4-6.5); ABSOLUTE LYMPH COUNT 0.6 /CUMM (1.2-3.4); ABSOLUTE MONOCYTE COUNT 0.4 /CUMM (0.10-0.60); BASOPHIL % 0.3 % (0.0-2.0); EOSINOPHIL % 0 % (0-5); MEAN CORPUSCULAR HGB 32.1 PG (27.0-31.0); MEAN CORPUSCULAR HGB CONC 33.8 G/DL (33.0-37.0); MEAN PLATELET VOLUME 8.9 FL (7.4-10.4); PLATELET COUNT 298 /CUMM (130-400); RBC DISTRIBUTION WIDTH 12.6 % (11.5-14.5); RED BLOOD CELL CT 3.59 /CUMM (4.70-6.10); WHITE BLOOD CELL COUNT 7.5 /CUMM (4.8-10.8)
[2018-08-08 08:10] LABS: HEMATOCRIT 34.1 % (42-52)
[2018-08-08 08:38] LABS: GRANULOCYTE % 86.5 % (42.2-75.2)
--- NOTE | 2018-08-08 08:51 | Patient Discharge Instructions ---
Discharge Instructions General Discharge Information You were seen/treated for: Gout Acute Kidney injury Special Instructions: Please follow up with your PCP within 1 week of discharge to follow up on prednisonetaper and gout. Please monitor blood glucose 2-3 times a day, random and pre meal blood sugars and make a documentation of it. please call PCP if Blood sugar goes more than 300. immediately Please follow up with Rheumatology for Gout management Strongly Recommend Psychiatry consult outpatient for treatment of depression. Please check Blood glucose regularly at home. Acute Coronary Syndrome Inclusion Criteria At DC or during hospital stay patient has or had the following: ACS DIAGNOSIS No Discharge Core Measures Meds if any: Prescribed or Continued at Discharge Meds if any: NOT Prescribed or Continued at Discharge Congestive Heart Failure Inclusion Criteria At DC or during hospital stay patient has or had the following: CHF DIAGNOSIS No Discharge Core Measures Meds if any: Prescribed or Continued at Discharge Meds if any: NOT Prescribed or Continued at Discharge Cerebrovascular accident Inclusion Criteria At DC or during hospital stay patient has or had the following: CVA/TIA Diagnosis No Discharge Core Measures Meds if any: Prescribed or Continued at Discharge Meds if any: NOT Prescribed or Continued at Discharge Venous thromboembolism Inclusion Criteria VTE Diagnosis No VTE Type NONE VTE Confirmed by (Test) NONE Discharge Core Measures - Per Current guidelines, there needs to be overlap - treatment for the first 5 days of Warfarin therapy. - If discharged on Warfarin prior to 5 days of - overlap therapy, the patient will need to be - assessed for post discharge needs including - *Post discharge parental anticoagulation - *Warfarin and/or parental anticoagulation education - *Follow up date to check INR post discharge At least 5 days overlap therapy as Inpatient No Meds if any: Prescribed or Continued at Discharge Note: Overlap Therapy is Warfarin and Anticoagulant Meds if any: NOT Prescribed or Continued at Discharge
--- NOTE | 2018-08-08 08:56 | PN- Student ---
Subjective Subjective: Patient was seen and examined this am. Pt is afebrile and normotensive. Pt reports decreased pain in right wrist, currently 5/10, no tenderness to palpation at right wrist; limited ROM of right elbow. Prior to admission, patient report episodes of gout in right and left feet, which he reports has resolved. Reports neck pain/stiffness with movement and soreness at shoulder and elbow. Pt appeared groggy, but was OX3. Pt reports normal bowel movements and decreased urination, but reports history of concerns about diarrhea and decreased urinary frequency. Review of Systems Review of Systems Constitutional: Reports: chills, diaphoresis, weakness. Denies: fever. Cardiovascular: Reports: peripheral edema. Denies: chest pain, palpitations. Objective Objective: Current Medications Sig/Jhon Start time Last Medication Dose Stop Time Status Admin Acetaminophen 650 MG Q6P PRN 08/07 2215 AC (Tylenol) Acetaminophen 1,000 MG Q6P PRN 08/07 221 AC (Ofirmev) Amitriptyline HCl 75 MG AT BEDTIME 08/07 2215 AC 08/07 (Elavil 25 Mg. 2324 Tablet) Amlodipine Besylate 10 MG DAILY 08/08 0900 AC 08/08 (Norvasc) 0825 Doxazosin Mesylate 2 MG DAILY 08/08 09 AC 08/08 (Cardura) 0822 Heparin Sodium 5,000 UNIT Q8 08/08 0600 AC 08/08 (Porcine) 0516 Insulin Aspart 0 TIDAC 08/08 0800 AC 08/08 (NovoLOG) 0831 Lisinopril 40 MG DAILY 08/08 09 AC 08/08 (Prinivil) 0824 Metoprolol Tartrate 100 MG BID 08/08 09 AC 08/08 (Lopressor) 0825 Polyethylene Glycol 17 GM AT BEDTIME PRN 08/07 2215 AC (Miralax) Prednisone 40 MG DAILY 08/08 0900 AC 08/08 0823 Senna/Docusate Sodium 1 TAB AT BEDTIME PRN 08/07 2215 AC (Senokot S) Sodium Chloride 1,000 ML .Q10H 08/07 221 AC 08/08 (Normal Saline 0.9%) 0832 Results Results: Laboratory Tests 08/08/18 0636: Sodium Pending, Potassium Pending, Chloride Pending, Carbon Dioxide Pending, Anion Gap Pending, BUN Pending, Creatinine Pending, BUN/Creatinine Ratio Pending , CBC w Diff NO MAN DIFF REQ, RBC 3.59 L, MCV 95.0 H, MCH 32.1 H, MCHC 33.8, RDW 12.6, MPV 8.9, Gran % 86.5 H, Lymphocytes % 8.1 L, Monocytes % 5.1, Eosinophils % 0, Basophils % 0.3, Absolute Granulocytes 6.5, Absolute Lymphocytes 0.6 L, Absolute Monocytes 0.4, Absolute Eosinophils 0, Absolute Basophils 0 08/08/18 0620: Urinalysis LIGHT H, Urine Color YEL, Urine Clarity HAZY H, Urine pH 5.5, Ur Specific [place] >= 1.030, Urine Protein NEG, Urine Ketones NEG, Urine Nitrite NEG, Urine Bilirubin [email or web address]@[email or web address], Urine Urobilinogen 0.2, Ur Leukocyte Esterase NEG , Ur Microscopic SEDIMENT EXAMINED, Urine WBC 1-3 H, Ur Epithelial Cells FEW, Urine Bacteria FEW H, Hyaline Casts FEW H, Urine Hemoglobin NEG, Urine Glucose NEG 08/07/18 1651: Lactic Acid Cancelled 08/07/18 1424: Anion Gap 12, Estimated GFR 18 L, BUN/Creatinine Ratio 13.2, Glucose 125 H, Lactic Acid 1.3, Uric Acid 9.8 H, Calcium 9.6, Total Bilirubin 0.5, AST 25, ALT 20 L, Alkaline Phosphatase 58, Troponin I < 0.01, Total Protein 6.3, Albumin 3.7, Globulin 2.6, Albumin/Globulin Ratio 1.4, CBC w Diff NO MAN DIFF REQ, RBC 4.27 L, MCV 95.1 H, MCH 31.8 H, MCHC 33.5, RDW 12.3, MPV 8.5, Gran % 82.2 H, Lymphocytes % 9.4 L, Monocytes % 7.6, Eosinophils % 0.5, Basophils % 0.3, Absolute Granulocytes 9.7 H, Absolute Lymphocytes 1.1 L, Absolute Monocytes 0.9 H, Absolute Eosinophils 0.1, Absolute Basophils 0 PHYSICAL EXAM Last 24hrs of Vital Signs Vital Signs Date Time Temp Pulse Resp B/P B/P Pulse O2 O2 Flow FiO2 Mean Ox Delivery Rate 08/08 825 76 114/60 08/08 08 76 11460 08/08 0824 76 11460 08/08 0637 98.6 76 20 114/60 92 08/08 0000 Nasal 2.0L Cannula 08/07 2349 Room Air Room Air 08/07 2213 97.6 97 20 102/60 92 Nasal Cannula 08/07 1738 98.6 76 20 112/80 96 Nasal 2.0L Cannula 08/07 1728 Nasal 2.0L Cannula 08/07 1616 98.0 73 20 116/58 94 Nasal 2.0L Cannula 08/07 1542 96 Nasal 2.0L Cannula 08/07 1351 97.8 78 20 101/45 94 Room Air Room Air Physical Exam General Appearance Oriented X3, Cooperative, No Acute Distress Skin No Rashes (mild erythema at right wrist) HEENT Atraumatic Cardiovascular Regular Rate, Normal S1, Normal S2, No Murmurs Lungs Clear to Auscultation, Normal Air Movement Abdomen Normal Bowel Sounds, Soft, No Tenderness Neurological decreased strength in right hand, limited ROM at right hand and elbow Extremities No Clubbing, No Cyanosis, No Tenderness/Swelling Vascular Normal Pulses Assessment/Plan Assessment: Mr. Izaguirre is a 78yo male with a PMH of gout flares in wrist and ankles, lung cancer s/p lobectomy in 2006, depression, diabetes, COPD on home O2, hypertension, hyperlipidemia who presented to the ED with weakness in the right wrist. He reported a flare of gout starting at the right foot, then left foot, and then to right wrist. Pt reports that right and left feet symptoms have resolved. Since admission, patient reports that pain in wrist has decreased and is currently at 5/10. Right wrist is currently not tender to palpation, limited ROM compared to left wrist, and strength 4/5. Patient also reports decreased urinary frequency. Labs show elevated Cr from baseline, currently 2.5, baseline 1.2. Pt is currently receiving NS 100ml/hr. Plan: 1. Gout - on 40mg prednisone, continue treatment - start allopurinol after flare resolves - no NSAIDs or colchicine due to impaired renal function 2. JUANY - patient on NS 100ml/hr - monitor Cr, currently 2.5 3. Continue on home meds
[2018-08-08 14:34] VITALS: BP 110/65
[2018-08-08 22:15] VITALS: BP 170/90
[2018-08-09 06:23] VITALS: BP 144/76
--- NOTE | 2018-08-09 07:33 | Discharge Summary ---
Visit Information Visit Dates Admission Date: 08/07/18 Discharge Date: 08/10/18 Hospital Course Course Attending Physician: Manny Ann MD Primary Care Physician: Alberto BOWDEN,Dylan Couch Hospital Course: 78-year-old male past medical history of Gout flares in wrist and ankles, lung cancer status post lobectomy, diabetes, COPD on home O2, hypertension, hyperlipidemia presented to the ER for evaluation of generalized weakness. The patient has not been eating or drinking much, hasnt been using any NSAIDs, anbd uses only extra strengtyh tyelenol for pain, a/p 1. Gout- -Given 40 mg of prednisone for 3 days, Taper prednisone over the next 9 days. Follow-up with PCP Dr. Dominguez before the end of prednisone taper. -Will appreciate referral to OP rheumatology for management of chronic gout. -do not give NSAIDS due to poor renal functions 2. JUANY- Oral fluid intake appreciated cr- 1.3 Trending low can anticipate discharge tomorrow 3. mild - moderate Depression - -Patient has not been eating or drinking fluids, drinks 1 beer every day and has tangential talking. -Patient was on amitryptilin and lexapro 10 mg was added -Dr Ortiz saw the patient and recommended continuation of Lexapro at 10 mg and [facility] Patient also complains of some illusions (not hallucinations) and wanted to get an ophthalmology referral for this patient. 4. Diabetes mellitus type 2 -Patient has been on insulin sliding scale at the inpatient setup -Monitor blood glucose at home, patient has been prescribed a glucometer. Report to PCP if blood sugar greater than 300 -At the time of discharge patient is switched back to his home dose of metformin Allergies: Uncoded Allergies: HAIR DYE (RASH FROM HAIR DYE 08/07/18) METAL (Intermediate, 03/02/15) Disposition Summary Disposition Principal Diagnosis: gout depression JUANY Additional Diagnosis: DM-2 Discharge Disposition: home or self care Discharge Instructions General Discharge Information Code Status: Full Code Patient's Diet: Eat meat, drink too much alcohol Provide instructions regarding diet healthy for gout Patient's Activity: As tolerated Follow-Up Instructions/Appts: Please follow-up with PCP Dr. Dominguez within 1 week of discharge, before the end of prednisone taper Please refer the patient to outpatient rheumatology for follow-up of chronic gout. Please establish psychiatry care within 1 week of discharge at [address] Medications at Discharge Discharge Medications: Continue taking these medications: Amitriptyline HCl (Amitriptyline HCl) 75 MG TABLET 1 Tablet ORAL Every night Metformin HCl (Metformin HCl) 500 MG TABLET 1 Tablet ORAL TWICE DAILY Terazosin HCl (Terazosin HCl) 10 MG CAPSULE 1 Capsule ORAL DAILY Metoprolol Tartrate (Metoprolol Tartrate) 100 MG TABLET 1 Tablet ORAL TWICE DAILY Qty = 180 Amlodipine Besylate/Benazepril (Lotrel 10-40 MG Capsule) 10 MG-40 MG CAPSULE 1 Capsule ORAL DAILY Start taking the following new medications: Prednisone (Prednisone) 10 MG TABLET 3 Tablet ORAL DAILY Qty = 18 No Refills Comments: 3 tablets on 08/11, 08/12, 08/13 2 tablets on 08/14, 08/15, 08/16 1 tablet on 08/17, 08/18, 08/19 Escitalopram Oxalate (Lexapro) 10 MG TABLET 1 Tablet ORAL DAILY Qty = 30 No Refills Copies To: Alberto BOWDEN,Dylan Couch
--- NOTE | 2018-08-09 07:33 | PN- Housestaff ---
Enrike Garcia 08/09/18 0732: Subjective Follow-up For: Gout JUANY Subjective: Patient was seen and examined today at the bedside. He said that he is doing well he was able to move his wrist around although not completely. The pain has significantly reduced and the patient shook hands with me. The erythema and swelling have also gone down. He does not have any deep difficulty breathing. He does not have extreme exhaustion although still feels a little tired. Review of Systems Constitutional: Reports: see HPI. Objective Last 24 Hrs of Vital Signs/I&O Vital Signs Date Time Temp Pulse Resp B/P B/P Pulse O2 O2 Flow FiO2 Mean Ox Delivery Rate 08/09 800 97.8 66 18 144/76 08/09 06 97.8 60 18 144/76 94 Room Air 08/08 2215 97.6 71 18 170/90 93 08/08 2006 170/90 08/08 1434 98.9 69 20 110/65 93 Room Air Intake & Output 08/09 1600 08/09 0000 Intake Total 1040 440 Output Total 600 Balance 440 440 Intake, IV 800 200 Intake, Oral 240 240 Number 0 Bowel Movements Output, Urine 600 Physical Exam General Appearance: Alert, Oriented X3, Cooperative, No Acute Distress Cardiovascular: Regular Rate, No Murmurs Lungs: Clear to Auscultation, Normal Air Movement Abdomen: Normal Bowel Sounds, Soft, No Tenderness, No Hepatospenomegaly, No Masses Neurological: Normal Speech, Strength at 5/5 X4 Ext, Normal Tone, Sensation Intact Extremities: wrist swelling, erythema significantly reduced. decreased in restriction of movement. Current Medications: Current Medications Sig/Jhon Start time Last Medication Dose Route Stop Time Status Admin Acetaminophen 650 MG Q6P PRN 08/07 2215 AC PO Acetaminophen 1,000 MG Q6P PRN 08/07 2215 AC IV Amitriptyline HCl 75 MG AT BEDTIME 08/07 2215 AC 08/08 PO 2005 Amlodipine Besylate 10 MG DAILY 08/08 900 AC 08/09 PO 799 Doxazosin Mesylate 2 MG DAILY 08/08 900 AC 08/09 PO 075 Heparin Sodium 5,000 UNIT Q8 08/08 600 AC 08/09 (Porcine) SC 0523 Insulin Aspart 0 TIDAC 08/08 800 AC 08/08 SC 1728 Lisinopril 40 MG DAILY 08/08 900 DC 08/08 PO 0824 Metoprolol Tartrate 100 MG BID 08/08 900 AC 08/09 PO 08 Polyethylene Glycol 17 GM AT BEDTIME PRN 08/07 2215 AC PO Prednisone 40 MG DAILY 08/08 900 AC 08/09 PO 0800 Senna/Docusate Sodium 1 TAB AT BEDTIME PRN 08/07 2215 AC PO Sodium Chloride 1,000 ML .Q10H 08/07 2215 AC 08/09 IV 0432 Last 24 Hrs of Lab/Dariusz Results Last 24 Hrs of Labs/Mics: Laboratory Tests 08/09/18 0610: Anion Gap 10, Estimated GFR 39 L, BUN/Creatinine Ratio 29.4 H Assessment/Plan Assessment: 78-year-old male past medical history of Gout flares in wrist and ankles, lung cancer status post lobectomy, diabetes, COPD on home O2, hypertension, hyperlipidemia presented to the ER for evaluation of generalized weakness. The patient has not been eating or drinking much, hasnt been using any NSAIDs, anbd uses only extra strengtyh tyelenol for pain, a/p 1. Gout- given 40 mg of prednisone, comtimue the same treatment. uric acid level 9.8 will refer pt to OP rheumatology do not give NSAIDS due to poor renal functions 2. JUANY- Patient started on IV fluids cr- 1.7 Trending low can anticipate discharge tomorrow 3. Depression - Patient is on amitryptilin and was started on lexapro Psych consult appreciated -Code status- FULL code DVT prohylaxis Problem List: 1. Gout 2. Acute kidney injury Pain Ratin Pain Location: none Pain Goal: Remain pain free Pain Plan: none Tomorrow's Labs & Rationales: none Manny Ann MD 08/09/182119: Attending MD Review Statement Attending Statement Attending MD Statement: examined this patient, discuss w/resident/PA/CONTENT MANAGEMENT SPECIALIST, agreed w/resident/PA/CONTENT MANAGEMENT SPECIALIST, discussed with family, reviewed EMR data (avail), discussed with nursing, discussed with case mgmt, amended to note Attending Assessment/Plan: The patient was seen and discussed with house staff, nursing, and case management. Cr decreasing with hydration and gout improving on Prednisone. Discussed events leading to admission with the patient. He stated that due to depression he was anorexic and not eating or drinking. Concern regarding his symptoms. Requested psych consult. Continue insulin/sliding scale. Will not restart Metformin until Cr back to baseline. Reviewed Dr. Dominguez's outpatient records. Continue IV hydration.
--- NOTE | 2018-08-09 08:11 | PN- Student ---
Subjective Subjective: Patient was seen and examined this am. Patient is afebrile and BP is elevated; SBP 140-170 and DBP 70-90. Patient continues to report decreased ROM in right wrist, strength 3/5; and limited ROM of right elbow. Prior to admission, patient reports recent episodes of gout in right and left feet, which he reports has resolved. Denies neck pain/stiffness today. Patient reports an episode of diarrhea yesterday and normal urinary frequency today. Review of Systems Review of Systems Constitutional: Reports: chills. Denies: diaphoresis, fever. Cardiovascular: Denies: chest pain, edema, orthopena, palpitations. Respiratory: Reports: short of breath (on exertion). Denies: cough, hemoptysis, orthopnea, sputum production, wheezing. GI: Reports: diarrhea. Denies: abdominal pain, constipation, bowel incontinence, nausea, vomiting. Genitourinary: Denies: discharge, dysuria, frequency, urgency. Musculoskeletal: Reports: gout. Denies: neck pain. Objective Objective: Current Medications Sig/Jhon Start time Last Medication Dose Stop Time Status Admin Acetaminophen 650 MG Q6P PRN 08/07 221 AC (Tylenol) Acetaminophen 1,000 MG Q6P PRN 08/07 221 AC (Ofirmev) Amitriptyline HCl 75 MG AT BEDTIME 08/07 2215 AC 08/08 (Elavil 25 Mg. 2006 Tablet) Amlodipine Besylate 10 MG DAILY 08/08 09 AC 08/09 (Norvasc) 0800 Doxazosin Mesylate 2 MG DAILY 08/08 09 AC 08/09 (Cardura) 0759 Heparin Sodium 5,000 UNIT Q8 08/08 06 AC 08/09 (Porcine) 0523 Insulin Aspart 0 TIDAC 08/08 0800 AC 08/08 (NovoLOG) 1728 Metoprolol Tartrate 100 MG BID 08/08 09 AC 08/09 (Lopressor) 0800 Polyethylene Glycol 17 GM AT BEDTIME PRN 08/07 221 AC (Miralax) Prednisone 40 MG DAILY 08/08 09 AC 08/09 0800 Senna/Docusate Sodium 1 TAB AT BEDTIME PRN 08/07 221 AC (Senokot S) Sodium Chloride 1,000 ML .Q10H 08/07 2215 AC 08/09 (Normal Saline 0.9%) 0432 Results Results: Laboratory Tests 08/09/18 0610: Sodium Pending, Potassium Pending, Chloride Pending, Carbon Dioxide Pending, Anion Gap Pending, BUN Pending, Creatinine Pending, BUN/Creatinine Ratio Pending 08/08/18 0636: Anion Gap 10, Estimated GFR 25 L, BUN/Creatinine Ratio 22.4, CBC w Diff NO MAN DIFF REQ, RBC 3.59 L, MCV 95.0 H, MCH 32.1 H, MCHC 33.8, RDW 12.6, MPV 8.9, Gran % 86.5 H, Lymphocytes % 8.1 L, Monocytes % 5.1, Eosinophils % 0, Basophils % 0.3, Absolute Granulocytes 6.5, Absolute Lymphocytes 0.6 L, Absolute Monocytes 0.4, Absolute Eosinophils 0, Absolute Basophils 0 08/08/18 0620: Urinalysis LIGHT H, Urine Color YEL, Urine Clarity HAZY H, Urine pH 5.5, Ur Specific [place] >= 1.030, Urine Protein NEG, Urine Ketones NEG, Urine Nitrite NEG, Urine Bilirubin NEG@ICTO, Urine Urobilinogen 0.2, Ur Leukocyte Esterase NEG , Ur Microscopic SEDIMENT EXAMINED, Urine WBC 1-3 H, Ur Epithelial Cells FEW, Urine Bacteria FEW H, Hyaline Casts FEW H, Urine Hemoglobin NEG, Urine Glucose NEG 08/07/18 1651: Lactic Acid Cancelled 08/07/18 1424: Anion Gap 12, Estimated GFR 18 L, BUN/Creatinine Ratio 13.2, Glucose 125 H, Lactic Acid 1.3, Uric Acid 9.8 H, Calcium 9.6, Total Bilirubin 0.5, AST 25, ALT 20 L, Alkaline Phosphatase 58, Troponin I < 0.01, Total Protein 6.3, Albumin 3.7, Globulin 2.6, Albumin/Globulin Ratio 1.4, CBC w Diff NO MAN DIFF REQ, RBC 4.27 L, MCV 95.1 H, MCH 31.8 H, MCHC 33.5, RDW 12.3, MPV 8.5, Gran % 82.2 H, Lymphocytes % 9.4 L, Monocytes % 7.6, Eosinophils % 0.5, Basophils % 0.3, Absolute Granulocytes 9.7 H, Absolute Lymphocytes 1.1 L, Absolute Monocytes 0.9 H, Absolute Eosinophils 0.1, Absolute Basophils 0 PHYSICAL EXAM Last 24hrs of Vital Signs Vital Signs Date Time Temp Pulse Resp B/P B/P Pulse O2 O2 Flow FiO2 Mean Ox Delivery Rate 08/09 0800 97.8 66 18 144/76 08/09 0623 97.8 60 18 144/76 94 Room Air 08/08 2215 97.6 71 18 170/90 93 08/08 2006 170/90 08/08 1434 98.9 69 20 110/65 93 Room Air 08/08 0825 76 114/60 08/08 0825 76 114/60 08/08 0824 76 114/60 Physical Exam General Appearance Alert, Cooperative, No Acute Distress HEENT Atraumatic Cardiovascular Regular Rate, Normal S1, Normal S2, No Murmurs Lungs Clear to Auscultation (end expiratory wheeze) Abdomen Normal Bowel Sounds, Soft, No Tenderness Neurological limited ROM of right wrist and elbow. right wrist 3/5 strength Extremities No Clubbing, No Cyanosis, No Edema, Normal Pulses Assessment/Plan Assessment: Mr. Izaguirre is a 78yo male with a PMH of gout flares in wrist and ankles, lung cancer s/p lobectomy in 2006, depression, diabetes, COPD on home O2, hypertension, hyperlipidemia who presented to the ED with weakness in the right wrist. He reported a flare of gout starting at the right foot, then left foot, and then to right wrist. Pt reports that right and left feet symptoms have resolved. Right wrist is currently not tender to palpation, limited ROM compared to left wrist, and strength 3/5. Patient currently reports normal urinary frequency. Labs show elevated Cr from baseline, currently 1.7, baseline 1.2. Pt is currently receiving NS 100ml/hr. Plan: Plan: 1. Gout - on 40mg prednisone, continue treatment - start allopurinol after flare resolves - no NSAIDs or colchicine due to impaired renal function 2. JUANY - patient on NS 100ml/hr - monitor Cr, currently 1.7 - hold lisinopril 3. Continue on home meds
[2018-08-09 14:46] VITALS: BP 132/70
[2018-08-09 20:20] VITALS: BP 140/80
[2018-08-10 06:18] VITALS: BP 146/70
--- NOTE | 2018-08-10 07:12 | PN- Housestaff ---
Enrike Garcia 08/10/18 0711: Subjective Follow-up For: Gout Depression juany Subjective: Patient was seen and examined today. He states that his wrist swelling has been completely better. He is able to move his wrist partially there is no erythema. Pain has resolved. He was informed about the change of medications for depression. And discharge plan was discussed Review of Systems Constitutional: Reports: see HPI. Objective Last 24 Hrs of Vital Signs/I&O Vital Signs Date Time Temp Pulse Resp B/P B/P Pulse O2 O2 Flow FiO2 Mean Ox Delivery Rate 08/10 09 67 130/82 08/10 09 67 130/82 08/10 0800 95 Room Air 08/10 0618 97.9 64 20 146/70 93 08/09 2033 66 140/80 08/09 2020 97.5 66 20 140/80 94 08/09 1600 Room Air 08/09 1446 98.2 72 18 132/70 92 Room Air Intake & Output 08/10 1600 08/10 0800 08/10 0000 Intake Total 1160 1580 Output Total 300 650 Balance 860 930 Intake, IV 800 700 Intake, Oral 360 880 Output, Urine 300 650 Physical Exam General Appearance: Alert, Oriented X3, Cooperative, No Acute Distress Cardiovascular: Regular Rate, No Murmurs Lungs: Clear to Auscultation, Normal Air Movement Abdomen: Normal Bowel Sounds, Soft, No Tenderness, No Hepatospenomegaly, No Masses Neurological: Normal Speech, Strength at 5/5 X4 Ext, Normal Tone, Sensation Intact Extremities: wrist swelling has almost resolved, no erythema. restricted range of movements seems to be resolving Current Medications: Current Medications Sig/Jhon Start time Last Medication Dose Route Stop Time Status Admin Acetaminophen 650 MG Q6P PRN 08/07 2215 AC PO Acetaminophen 1,000 MG Q6P PRN 08/07 2215 AC IV Amitriptyline HCl 75 MG AT BEDTIME 08/07 2215 DC 08/09 PO 2032 Amlodipine Besylate 10 MG DAILY 08/08 900 AC 08/10 PO 907 Doxazosin Mesylate 2 MG DAILY 08/08 900 AC 08/10 PO 902 Escitalopram Oxalate 10 MG 08/09 1415 AC 08/10 PO 903 Heparin Sodium 5,000 UNIT Q8 08/08 600 AC 08/10 (Porcine) SC 0617 Insulin Aspart 0 TIDAC 08/08 800 AC 08/09 SC 1641 Metoprolol Tartrate 100 MG BID 08/08 900 AC 08/10 PO 907 Polyethylene Glycol 17 GM AT BEDTIME PRN 08/07 2215 AC PO Prednisone 40 MG DAILY 08/08 900 AC 08/10 PO 902 Senna/Docusate Sodium 1 TAB AT BEDTIME PRN 08/07 2215 AC PO Sodium Chloride 1,000 ML .Q10H 08/07 2215 AC 08/10 IV 0024 Last 24 Hrs of Lab/Dariusz Results Last 24 Hrs of Labs/Mics: Laboratory Tests 08/10/18 0730: Anion Gap 8, Estimated GFR 53 L, BUN/Creatinine Ratio 31.5 H Assessment/Plan Assessment: 78-year-old male past medical history of Gout flares in wrist and ankles, lung cancer status post lobectomy, diabetes, COPD on home O2, hypertension, hyperlipidemia presented to the ER for evaluation of generalized weakness. The patient has not been eating or drinking much, hasnt been using any NSAIDs, anbd uses only extra strengtyh tyelenol for pain, a/p 1. Gout- given 40 mg of prednisone, Taper prednisone over the next 9 days. Follow-up with PCP Dr. Dominguez before the end of prednisone taper. will refer pt to OP rheumatology. do not give NSAIDS due to poor renal functions 2. JUANY- Oral fluid intake appreciated cr- 1.3 Trending low can anticipate discharge tomorrow 3. mild - moderate Depression - Patient is on amitryptilin and was started on lexapro Dr Ortiz saw the patient and recommended continuation of Lexapro at 10 mg and outpatient follow-up set up at [address] [place] [address]. Patient also complains of some illusions (not hallucinations) and wanted to get an ophthalmology referral for this patient. 4. Diabetes mellitus type 2 Patient has been on insulin sliding scale at the inpatient setup Monitor blood glucose at home, patient has been prescribed a glucometer. Report to PCP if blood sugar greater than 300 At the time of discharge patient is switched back to his home dose of metformin Problem List: 1. Gout attack 2. Acute kidney injury Pain Ratin Pain Location: wrist Pain Goal: Remain pain free Pain Plan: none Tomorrow's Labs & Rationales: none Manny Ann MD 08/10/18 1244: Attending MD Review Statement Attending Statement Attending MD Statement: examined this patient, discuss w/resident/PA/TEXTILE MACHINERY INSTRUCTOR, agreed w/resident/PA/TEXTILE MACHINERY INSTRUCTOR, reviewed EMR data (avail), discussed with nursing, discussed with case mgmt, amended to note Attending Assessment/Plan: The patient was seen and discussed with house staff, nursing, case management and psychiatry (Dr. Wong). Cr almost back to baseline at present. Max glu was in low 200's yesterday. Cr now in safe range to restart Metformin. Concern regarding the anorexia that lead to volume depletion and gout flare. He has been eating well here. Appreciate psychiatry input and feel that the patient will benefit from outpatient therapy and he agrees. OK to discharge today with close follow-up with PCP and psych as OP. Will also need rheumatology appointment as OP and consider allopurinol after acute flare resolved assuming Cr normalizes.
--- NOTE | 2018-08-10 07:51 | PN- Student ---
Subjective Subjective: Pt was seen and examined this am. Pt is afebrile, blood pressure is elevated, SBP 140s, DBP 80s. Pt reports decreased pain in right wrist, currently 3/. Pt has limited ROM at right wrist, but improved from yesterday, continues to have decreased strength, 3/. Pt has normal ROM at right elbow. Pt's thought process was less tangential this am. Objective Objective: Current Medications Sig/Jhon Start time Last Medication Dose Stop Time Status Admin Acetaminophen 650 MG Q6P PRN 08/07 2215 AC (Tylenol) Acetaminophen 1,000 MG Q6P PRN 08/07 2215 AC (Ofirmev) Amlodipine Besylate 10 MG DAILY 08/08 0900 AC 08/09 (Norvasc) 0800 Doxazosin Mesylate 2 MG DAILY 08/08 09 AC 08/09 (Cardura) 0759 Escitalopram Oxalate 10 MG 0808/09 1415 AC 08/09 (Lexapro) 1820 Heparin Sodium 5,000 UNIT Q8 08/08 0600 AC 08/10 (Porcine) 0617 Insulin Aspart 0 TIDAC 08/08 0800 AC 08/09 (NovoLOG) 1641 Metoprolol Tartrate 100 MG BID 08/08 0900 AC 08/09 (Lopressor) 2033 Polyethylene Glycol 17 GM AT BEDTIME PRN 08/07 2215 AC (Miralax) Prednisone 40 MG DAILY 08/08 0900 AC 08/09 0800 Senna/Docusate Sodium 1 TAB AT BEDTIME PRN 08/07 221 AC (Senokot S) Sodium Chloride 1,000 ML .Q10H 08/07 2215 AC 08/10 (Normal Saline 0.9%) 0024 Results Results: Laboratory Tests 08/10/18 0730: Sodium Pending, Potassium Pending, Chloride Pending, Carbon Dioxide Pending, Anion Gap Pending, BUN Pending, Creatinine Pending, BUN/Creatinine Ratio Pending 08/09/18 0610: Anion Gap 10, Estimated GFR 39 L, BUN/Creatinine Ratio 29.4 H 08/08/18 0636: Anion Gap 10, Estimated GFR 25 L, BUN/Creatinine Ratio 22.4, CBC w Diff NO MAN DIFF REQ, RBC 3.59 L, MCV 95.0 H, MCH 32.1 H, MCHC 33.8, RDW 12.6, MPV 8.9, Gran % 86.5 H, Lymphocytes % 8.1 L, Monocytes % 5.1, Eosinophils % 0, Basophils % 0.3, Absolute Granulocytes 6.5, Absolute Lymphocytes 0.6 L, Absolute Monocytes 0.4, Absolute Eosinophils 0, Absolute Basophils 0 08/08/18 0620: Urinalysis LIGHT H, Urine Color YEL, Urine Clarity HAZY H, Urine pH 5.5, Ur Specific [place] >= 1.030, Urine Protein NEG, Urine Ketones NEG, Urine Nitrite NEG, Urine Bilirubin [email or web address]@ICTO, Urine Urobilinogen 0.2, Ur Leukocyte Esterase NEG , Ur Microscopic SEDIMENT EXAMINED, Urine WBC 1-3 H, Ur Epithelial Cells FEW, Urine Bacteria FEW H, Hyaline Casts FEW H, Urine Hemoglobin NEG, Urine Glucose NEG 08/07/18 1651: Lactic Acid Cancelled 08/07/18 1424: Anion Gap 12, Estimated GFR 18 L, BUN/Creatinine Ratio 13.2, Glucose 125 H, Lactic Acid 1.3, Uric Acid 9.8 H, Calcium 9.6, Total Bilirubin 0.5, AST 25, ALT 20 L, Alkaline Phosphatase 58, Troponin I < 0.01, Total Protein 6.3, Albumin 3.7, Globulin 2.6, Albumin/Globulin Ratio 1.4, CBC w Diff NO MAN DIFF REQ, RBC 4.27 L, MCV 95.1 H, MCH 31.8 H, MCHC 33.5, RDW 12.3, MPV 8.5, Gran % 82.2 H, Lymphocytes % 9.4 L, Monocytes % 7.6, Eosinophils % 0.5, Basophils % 0.3, Absolute Granulocytes 9.7 H, Absolute Lymphocytes 1.1 L, Absolute Monocytes 0.9 H, Absolute Eosinophils 0.1, Absolute Basophils 0 Review of Systems Review of Systems Constitutional: Reports: weakness. Denies: chills, diaphoresis, fever. Cardiovascular: Denies: chest pain, edema, orthopena, palpitations, peripheral edema, syncope. Respiratory: Reports: short of breath (dyspnea on exertion). Denies: cough, hemoptysis, orthopnea, sputum production. GI: Denies: abdominal pain, constipation, diarrhea, bowel incontinence, nausea, bloody stool, vomiting. Genitourinary: Denies: discharge, dysuria, frequency, hematuria, hesitation, pain. Musculoskeletal: Reports: gout. Denies: back pain, joint swelling, muscle pain, muscle stiffness , neck pain. Assessment/Plan Assessment: Mr. Izaguirre is a 78yo male with a PMH of gout flares in wrist and ankles, lung cancer s/p lobectomy in 2006, depression, diabetes, COPD on home O2, hypertension, hyperlipidemia who presented to the ED with weakness in the right wrist. He reported a flare of gout starting at the right foot, then left foot, and then to right wrist. Pt reports that right and left feet symptoms have resolved. Since admission, patient reports that pain in wrist has decreased and is currently at 5/10. Right wrist is currently not tender to palpation, limited ROM compared to left wrist, and strength 4/5. Patient also reports decreased urinary frequency. Labs show elevated Cr from baseline, currently 2.5, baseline 1.2. Pt is currently receiving NS 100ml/hr. 1. Gout - on 40mg prednisone, continue treatment - start allopurinol after flare resolves - no NSAIDs or colchicine due to impaired renal function 2. JUANY - patient on NS 100ml/hr - monitor Cr, currently 2.5 3. Continue on home meds Plan: 1. Gout - on 40mg prednisone, continue treatment - start allopurinol after flare resolves - no NSAIDs or colchicine due to impaired renal function 2. JUANY - monitor Cr, currently 1.3 - discontinue NS 3. Depression - D/c amitriptyline, started lexapro 10mh - request psych consult for outpatient services 4. Diabetes Mellitus, Type 2 - give patient script for glucometer, lancets, test strips for home monitoring - continue metformin at home - monitor blood glucose with finger sticks 5. Continue on home meds PHYSICAL EXAM Last 24hrs of Vital Signs Vital Signs Date Time Temp Pulse Resp B/P B/P Pulse O2 O2 Flow FiO2 Mean Ox Delivery Rate 08/10 06 97.9 64 20 146/70 93 08/09 2033 66 140/80 08/09 2020 97.5 66 20 140/80 94 08/09 1600 Room Air 08/09 1446 98.2 72 18 132/70 92 Room Air 08/09 0800 97.8 66 18 144/76 Physical Exam General Appearance Alert, Oriented X3, Cooperative, No Acute Distress HEENT Atraumatic, PERRLA Cardiovascular Regular Rate, Normal S1, Normal S2, No Murmurs Lungs Clear to Auscultation, Normal Air Movement, occasional end expiratory wheezing Abdomen Normal Bowel Sounds, Soft, No Tenderness Neurological Normal Speech Extremities No Clubbing, No Cyanosis, No Edema, Normal Pulses
[2018-08-10] MEDS ORDERED: LEXAPRO10 M1 PO ×2 (08:39→12:20)
[2018-08-10 09:08] VITALS: BP 130/82
[2018-08-10] MEDS ORDERED: PREDNISONE10 M2 PO ×2 (10:18→12:20)
--- NOTE | 2018-08-10 17:44 | Cons- Psychiatry ---
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 Pt has had poor po intake and over his hospital course he admitted that it was 2/2 depression. On exam he admits to feeling anhedonia, amotivation, anergia, "not himself." Today was his day of discharge and he had already been started on an antidepressant by medicine so I stopped by to solidify his diagnosis and assure that he had aftercare. His speech was mostly clear with a normal rate and soft volume. His behavior was normal. He was pleasant on exam. He did seem to want to have someone to talk to and was open to following up with psychiatric care. His thought process was circumstantial in content contained depressive cognitions. His appetite has been very poor though he states he does drink enough. His insight was adequate and judgment was good to seek out psychiatry for further follow-up. He did state that he is having something that sounds like illusions looking at an object and having it change in form but he denied satinder hallucinations auditory hallucinations disorganization any signs of psychosis skinny or delirium. His sensorium was completely clear on exam. IMP Mild MDD anxious overlay P Tolerating lexapro which was a good choice for dep/anx. 25 of amitriptyline is a dose for sleep which can be changed at the discretion of psychiatry provider. Patient is set up for an appointment with outpatient psychiatry on August 28 at [address] [facility]. he is not suicidal homicidal delirious or psychotic and is safe for discharge
== END 2018-08-10 13:35 | DRG 684 ==
LOC: ERH 13:46 → 2NA 15:58 → ERHI 15:58 → ENRESERV 16:24 → ENTRNSPT 17:06 → EDTRNSPTSTS 17:08 → 2NA 17:15 → CMPTRNSPT 17:36 → ENPENDDIS 08-10 12:10 → ENTRNSPT 08-10 13:20 → EDTRNSPT 08-10 13:32 → EDTRNSPTSTS 08-10 13:32 → 2NA 08-10 13:35 → CMPTRNSPT 08-10 13:53
PROVIDERS: Physician Assistant Medical; Student in an Organized Health Care Education/Training Program
DX: N17.9 Acute kidney failure, unspecified (principal); E86.0 Dehydration; J44.9 Chronic obstructive pulmonary disease, unspecified; Z99.81 Dependence on supplemental oxygen; E11.9 Type 2 diabetes mellitus without complications; M10.9 Gout, unspecified; I10 Essential (primary) hypertension; F32.9 Major depressive disorder, single episode, unspecified; Z85.118 Personal history of other malignant neoplasm of bronchus and lung; E78.5 Hyperlipidemia, unspecified; Z79.4 Long term (current) use of insulin; Z91.048 Other nonmedicinal substance allergy status
CPT/HCPCS: 2NASP; 36592; 71045; 73110-RT; 76775; 81001; 82436; 93005; 93010; 97116-GO; 97161-GP; 97530-GO; J1644